=== PATIENT | female | born 1975 | race Caucasian/White ===

== ENCOUNTER → 2021-10-05 | Day surgery (SDC) | payer OTHER ==
[~2021-10-05] VITALS: Ht 162.6 cm; Wt 96.2 kg
[~2021-10-05] MED LIST: ASCORBIC ACID500 MG PO; BLM PO; MACROBID100 MG PO; MAGNESIUM CITRATE PO; ONDANSETRON ODT8 MG PO; PERCOCET 10-321 EACH PO; PERCOCET 5-3251 EACH PO; PROBIOTIC1 EAC2 PO; VITAMIN B-12 51 EACH PO; VITAMIN D350 MC4 PO; VITAMIN E200 UNI3 PO; ZINC50 M2 PO; ZOFRAN4 MG PO; ZOFRAN8 MG PO; [UNRECOGNIZED DRUG - OTHER] PO; [UNRECOGNIZED DRUG - OTHER] PO; [UNRECOGNIZED DRUG - OTHER] PO
[2021-10-05 08:18] LABS: HCT 38.4 % (37.0-47.0); HGB 13.1 g/dl (12.5-16.0); MCH 30.2 pg (25.0-31.0); MCHC 34.1 g/dL (32.0-36.0); MCV 88.5 fL (78.0-100.0); MPV 10.5 fL (6.0-9.5); RBC 4.34 M/uL (4.20-5.40); RDW 13.2 % (11.5-14.0); WBC 5.4 K/uL (4.0-10.5)
[2021-10-05 08:43] LABS: BILIRUBIN - TOTAL 0.4 mg/dL (0.2-1.0); BUN/CREAT RATIO (CALC) 26.9 RATIO; CREATININE 0.52 mg/dL (0.51-0.95); GLOBULIN (CALCULATION) 3.4 g/dL; POTASSIUM 3.6 mmol/L (3.5-5.1); TOTAL PROTEIN 7.4 g/dL (6.4-8.2)
--- NOTE | 2021-10-05 09:21 | NUR ---
0830 pt arrived via stretcher from Pre-Op rm 6 she had # 20 IV Right hand WNL flushing well attached to 1000 ml NS at KVO, attached to BP, Spo2, ECG, HR baseline and continuous, Please see Moderate Sedation Monitor sheet for VS trends and IV medications, informed consent completed by Dr Jack Li and witnessed by [facility], 0842 pt on table for preprocedure scan, timeout complete Dr Li, Antonieta, and Myself allergies hydrocodone (itchiness) and latex cleansed with CHG allowed to dry, draped per sterile procedure 0848 first needle lidocaine [address] and removed wire left per procedure, pt tolerated procedure well without complication, no adverse drug reactions noted 0902 post procedure scan wire in place and no bleeding noted ok to transport back to preop per Dr Li, 0910 transported back to Preop via stretcher accompanied by myself to preop rm 6, report given to Awa HAWK
== END | disposition home or self-care (01) ==
LOC: FAS 07:32
PROVIDERS: Surgery
DX: N80.8 Other endometriosis (principal); M79.89 Other specified soft tissue disorders; M62.89 Other specified disorders of muscle; Z91.040 Latex allergy status
CPT/HCPCS: 36415; 77012; 80053; J1100; J2250; J2405; J2704; J3010; J7120

== ENCOUNTER 2022-07-25 16:01 | Emergency (ER) | payer OTHER ==
[~2022-07-25 16:01] MED LIST changes: +FLOMAX 0.4 MG0.4 MG PO; +NAPROXEN500 MG PO; +ONDANSETRON ODT4 MG PO
[2022-07-25 17:12] LABS: BILIRUBIN NEGATIVE (NEGATIVE); BLOOD 2+ Ery/uL (NEGATIVE); CLARITY CLEAR (CLEAR); COLOR YELLOW (YELLOW); GLUCOSE (U) NORMAL (NORMAL); LEUKOCYTES 1+ Leu/uL (NEGATIVE); NITRITE NEGATIVE (NEGATIVE); PROTEIN 1+ mg/dL (NEGATIVE); SPECIFIC GRAVITY 1.025 (1.001-1.030); UROBILINOGEN 0.2 mg/dL (0.2-1.0)
[2022-07-25 17:20] LABS: YEAST PRESENT
[2022-07-25 17:43] LABS: BASOPHIL 0.3 % (0-2); EOSINOPHIL 0.9 % (0-5); HCT 41.3 % (37.0-47.0); HGB 14.2 g/dl (12.5-16.0); LYMPHOCYTE 11.4 % (15-48); MCH 30.3 pg (25.0-31.0); MCHC 34.4 g/dL (32.0-36.0); MCV 88.2 fL (78.0-100.0); MPV 10.4 fL (6.0-9.5); NRBC 0; PLT 221 K/uL (150-400); RBC 4.68 M/uL (4.20-5.40); RDW 13.6 % (11.5-14.0); WBC 10.1 K/uL (4.0-10.5)
[2022-07-25 18:03] LABS: ALBUMIN 4.2 g/dL (3.4-5.0); BILIRUBIN - TOTAL 0.3 mg/dL (0.2-1.0); CREATININE 0.75 mg/dL (0.51-0.95); GLOBULIN (CALCULATION) 4.1 g/dL; POTASSIUM 3.5 mmol/L (3.5-5.1); TOTAL PROTEIN 8.3 g/dL (6.4-8.2)
== END 2022-07-25 19:06 | disposition home or self-care (01) ==
LOC: FER 16:01
PROVIDERS: Emergency Medicine
DX: N13.2 Hydronephrosis with renal and ureteral calculous obstruction (principal); I10 Essential (primary) hypertension; Z28.310 Unvaccinated for COVID-19; Z88.5 Allergy status to narcotic agent; Z91.040 Latex allergy status
CPT/HCPCS: 36415; 80053; 81001; 85025; 87088; J1170; J1885; J2405; J7030